=== PATIENT | female | born 1950 | race American Indian/Alaskan Native ===

== ENCOUNTER 2016-11-03 10:58 | Outpatient (CLI) | payer BC ==
--- NOTE | 2016-11-03 11:49 | Mammography Report ---
Screening mammogram: Routine views demonstrate numerous lipoid cysts in the upper outer right breast. Scattered benign-appearing calcifications are also noted in the upper outer portion of the right breast and a couple of similar calcifications in the superior left breast. The remainder of the breast pattern is generally data of fatty replacement bilaterally. Outside images demonstrate that in 2016 lipoid changes were present although they appear to have more calcified rims on the current study. The numerous other calcifications are noted bilaterally however were not present. None of the cysts nor calcifications were identified in 2015. The breast pattern otherwise is unchanged however from these prior exams. CAD used. 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 Please correlate this with clinical history. Recommendation: Annual mammogram followup. BI-RADS CATEGORY: 2 = Benign ACR BI-RADS MAMMOGRAPHIC CODES: 0 = Needs additional imaging evaluation; 1 = Negative; 2 = Benign; 3 = Probably benign; 4 = Suspicious; 5 = Malignant; 6 = Known biopsy-proven malignancy COMMENT: 1. Dense breast tissue, i.e., adenosis, fibrocystic changes, etc., may obscure an underlying neoplasm. 2. Approximately 10% of cancers are not detected with mammography. 3. A negative mammography report should not delay biopsy if a clinically suspicious mass is present.
== END 2016-11-03 10:59 | disposition home or self-care (01) ==
LOC: MAMMO 10:58
PROVIDERS: ATTEND Internal Medicine
DX: Z12.31 Encounter for screening mammogram for malignant neoplasm of breast (principal)
CPT/HCPCS: 77067; G0202

== ENCOUNTER 2021-01-28 11:51 | Outpatient (CLI) | payer MEDICARE ==
--- NOTE | 2021-01-28 14:28 | XRay Report ---
XR shoulder 2+V LT INDICATION / CLINICAL INFORMATION: LEFT SHOULDER PAIN. COMPARISON: None available. FINDINGS: BONES/JOINT(S): No acute fracture or subluxation. 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 SOFT TISSUES: No significant abnormality. ADDITIONAL FINDINGS: None. Signer Name: Sonu Rogers MD Signed: 01/28/2021 2:24 PM Workstation Name: [id number]
--- NOTE | 2021-01-28 14:29 | XRay Report ---
XR spine cervical 2-3V INDICATION / CLINICAL INFORMATION: NECK AND SHOULDER PAIN. COMPARISON: None available. FINDINGS: BONES/JOINT(S): No acute fracture or subluxation. Mild to moderate diffuse degenerative disc disease, worst at C5-6 and C6-7. SOFT TISSUES: No significant abnormality. ADDITIONAL FINDINGS: None. Signer Name: Sonu Rogers MD Signed: 01/28/2021 2:24 PM Workstation Name: [id number]
== END 2021-01-28 11:52 | disposition home or self-care (01) ==
LOC: XRAY 11:51
PROVIDERS: ATTEND Internal Medicine
DX: M19.012 Primary osteoarthritis, left shoulder (principal); M50.323 Other cervical disc degeneration at C6-C7 level; M50.322 Other cervical disc degeneration at C5-C6 level
CPT/HCPCS: 72040